=== PATIENT | female | born 1980 | race Caucasian/White ===

== ENCOUNTER 2025-06-15 12:16 | Outpatient (CLI) | payer BC | END 2025-06-15 12:17 | disposition home or self-care (01) | LOC: CSHMRI 12:16 | PROVIDERS: ATTEND Family Medicine | DX: R93.2 Abnormal findings on diagnostic imaging of liver and biliary tract (principal); D18.03 Hemangioma of intra-abdominal structures | CPT/HCPCS: 74183 ==